=== PATIENT | female | born 1980 | race African-American/Black ===

== ENCOUNTER 2016-05-30 18:46 | Inpatient (IN) ==
[2016-05-30] MEDS ORDERED: SOLU-MEDROL IV ONE (19:01)
[2016-05-30] MEDS ORDERED: DUONEB (A & A) INH ONE ×2 (19:02→20:48)
--- NOTE | 2016-05-30 19:09 | PROVIDER DOCUMENTATION ---
HPI-Respiratory General <Tacho Chung - Last Filed: 05/30/16 22:12> - General Source: patient, other (firend) - History of Present Illness-Resp Quality of Pain: reports: none Severity in ED: reports: severe Onset/Duration: reports: 24 hours ago Timing: reports: still present, constant, getting worse Exposure: reports: unknown cause Episode Frequency: occasional episodes Current Respiratory Medication Therapy: Initiated see nurses note Modifying Factors: improves with: nothing Associated Symptoms: reports: short of breath Similar Symptoms Previously?: Yes <Blair Howard Jr - Last Filed: 05/30/16 22:25> - General Chief Complaint: Shortness of Breath Stated Complaint: HEART PROBLEMS Time Seen by Provider: 05/30/16 19:00 Allergies/Adverse Reactions: Patient Allergies Allergy/AdvReac Type Severity Reaction Status Date / Time No Known Allergies Allergy Verified 05/30/16 22:01 Home Medications: Home Medication List Medication Instructions Recorded Confirmed Last Taken Type Home Meds Unobtainable 05/30/16 05/30/16 Unknown History - History of Present Illness-Resp Nature of Presenting Problem: 36 y/o AAF with a PMHx of respiratory issues that presents to the ED wiht a one day h/o SOB. Friend reports patient has been using NEB multiple times over the past day. States pt was hospitalized in the past with similar issues. No other history obtained. (Blair Howard Jr) Review of Systems - Adult - REVIEW OF SYSTEMS - ADULT Constitutional: reports: no symptoms reported Eyes: reports: no symptoms reported Ears, Nose, Mouth & Throat: reports: no symptoms reported Cardiovascular: reports: no symptoms reported Respiratory: reports: cough, shortness of breath, wheezing Gastrointestinal: reports: no symptoms reported Genitourinary: reports: no symptoms reported Musculoskeletal: reports: no symptoms reported Integumentary: reports: no symptoms reported Neurological: reports: no symptoms reported Psychiatric: reports: no symptoms reported Endocrine: reports: no symptoms reported Hematologic/Lymphatic: reports: no symptoms reported Allergic/Immunologic: reports: no symptoms reported <Blair Howard Jr - Last Filed: 05/30/16 22:25> Past History - Adult - PAST MEDICAL HISTORY-ADULT Review of Records: reports: Old Records Reviewed, Nursing Assessment Review, Medications Reviewed Cardiovascular: reports: HTN Endocrine/Immune: reports: thyroid disorder - PRIOR SURGERIES/PROCEDURES Surgical/Procedure History: reports: , other (thyroidectomy) - IMMUNIZATION STATUS Childhood Immunizations: See Nurse Assessment Flu Vaccine: See Nurse Assessment - SOCIAL HISTORY Smoking: cigarettes, less than 1 pack/day Substance Use: none/never Living Situation: friend <Blair Howard Jr - Last Filed: 05/30/16 22:25> Physical Exam-General - PHYSICAL EXAM-ADULT Initial Vital Signs Reviewed: Yes - CONSTITUTIONAL General Appearance: moderate distress. negative: lethargic, slow to respond - EYES Eyes: PERRL/EOMI, pink conjunctivae. negative: sclera injected, scleral icterus - HEAD, EARS, NOSE, MOUTH & THROAT HENMT: normocephalic/atraumatic. negative: pharyngeal erythema, tonsillar exudate - NECK Neck: non-tender, full range of motion, supple. negative: C-spine tenderness - RESPIRATORY Respiratory: respiratory distress, decreased breath sounds, accessory muscle use , wheezing. negative: crackles, rales, rhonchi, stridor - CARDIOVASCULAR Cardiovascular: normal peripheral pulses, regular rate, rhythm, no murmur, tachycardia - CHEST (BREASTS) Chest/Breast: no tenderness - GASTROINTESTINAL (ABDOMEN) Abdominal Exam: normal bowel sounds, non tender, soft. negative: guarding, rigid, rebound, tenderness - GENITOURINARY Female Genitalia/Pelvic Exam: deferred Rectal Exam: deferred - LYMPHATIC Lymphatic: no adenopathy - MUSCULOSKELETAL Back Exam: normal inspection. negative: muscle spasm Extremity: normal range of motion. negative: swelling, tenderness - SKIN Integumentary: normal color, normal turgor, warm/dry. 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 negative: facial droop, focal weakness, motor weakness - PSYCHIATRIC Psych/Mental Status: normal mood/affect, normal thought content, normal thought process, oriented x 3, anxious <Bliar Howard Jr - Last Filed: 05/30/16 22:25> Progress - REASSESSMENT Reassessment #1 Time Reassessed: 22:07 Status: improving (Pt is breathing better; Slight RU expiratory wheeze and diminished breath sounds on RLL. Improved airation. Dr. Howard discussed plan to admit pt for round the clock breathing treatments and steroids.) - EKG 1 Time of EKG reading by physician:: 18:58 EKG Read and Signed by:: Blair Howard Jr EKG Interpretation (*Must complete 3 of following elements*): Abnormal (Minimal voltage criteria for LVH, may be normal variant) Rate: 115 Rhythm: Sinus tachycardia - XRAY 1 XRAY: Bilateral XRAY Study: Chest Impression: See EMR Report XRAY Interpretation: Mild cardiomegaly, otherwise nad - CONSULTS/PCP/HOSPITALIST Notification #1 *Consult/PCP/Hospitalist*: Dr. Nails (Hospitalist) Time Discussed: 22:13 Consult Disposition: Admit <Tacho Chung - Last Filed: 05/30/16 22:12> <Blair Howard Jr - Last Filed: 05/30/16 22:25> - PLAN OF CARE/RESULTS Progress/Plan/Lab Results: 2205: Hospitalist paged. Vital Signs - 24 hr 05/30/16 05/30/16 19:00 19:09 Temperature 97.5 F L Pulse Rate 100 H 116 H Respiratory 25 H 20 Rate Blood Pressure 166/113 O2 Sat by Pulse 100 Oximetry Orders Category Date Time Status Cardiac Monitoring DIRECTED Care 05/30/16 19:00 Active Saline Loc NOW Care 05/30/16 19:00 Active CHEST-2 VIEWS [RAD] Stat Exams 05/30/16 19:00 Taken ABG [RESP] Routine Lab 05/30/16 20:45 Completed ALCOHOL BLOOD Stat Lab 05/30/16 19:33 Completed CBC WITH ELECTRONIC DIFF [HEME] Stat Lab 05/30/16 19:25 Completed CK PROFILE [SP CHEM] Stat Lab 05/30/16 19:25 Completed COMPREHENSIVE METABOLIC PANEL [CHEM] Stat Lab 05/30/16 19:25 Completed MAGNESIUM [CHEM] Stat Lab 05/30/16 19:25 Completed PRO B-NATRIURETIC PEPTIDE Stat Lab 05/30/16 19:25 Completed PROTIME WITH INR [COAG] Stat Lab 05/30/16 19:25 Completed PTT [COAG] Stat Lab 05/30/16 19:25 Completed TROPONIN T Stat Lab 05/30/16 19:25 Completed Albuterol 2.5MG/Ipratrop 0.5MG [Duoneb (A & A)] Med 05/30/16 19:02 Discontinued 3 ml INH NOW ONE Albuterol 2.5MG/Ipratrop 0.5MG [Duoneb (A & A)] Med 05/30/16 20:48 Discontinued 3 ml INH NOW ONE Methylprednisolone Sod Succ [Solu-Medrol] Med 05/30/16 19:01 Discontinued 125 mg IV NOW ONE Nitroglycerin Sl [Nitroglycerin] Med 05/30/16 19:00 Active 0.4 mg SL Q5M PRN PRN Aerosol Treatments Routine Oth 05/30/16 19:02 Completed Aerosol Treatments Routine Oth 05/30/16 20:48 Active Aerosol Treatments Stat Oth 05/30/16 19:02 Completed Aerosol Treatments Stat Oth 05/30/16 20:48 Active EKG [EKG] Stat Ther 05/30/16 19:00 Ordered Laboratory Tests 05/30/16 05/30/16 05/30/16 19:25 19:25 19:25 WBC 7.52 RBC 5.90 H Hgb 14.3 Hct 41.7 MCV 70.7 L MCH 24.2 L MCHC 34.3 RDW Std Deviation 16.7 H Plt Count 180 MPV Not Reportable Immature Gran % (Auto) 0.0 Neut % (Auto) 46.9 Lymph % (Auto) 44.5 [place] % (Auto) 8.1 Eos % (Auto) 0.4 Baso % (Auto) 0.1 Immature Gran # (Auto) 0.00 Neut # (Auto) 3.52 Lymph # (Auto) 3.35 [place] # (Auto) 0.61 H Eos # (Auto) 0.03 Baso # (Auto) 0.01 PT INR PTT (Actin FS) Specimen Type Sample Site pH pCO2 pO2 HCO3 Base Excess Oxyhemoglobin ABG O2 Sat (Calculated) ABG O2 Saturation ABG Carboxyhemoglobin ABG Methemoglobin Ildefonso Test A-a O2 Difference Total Hemoglobin Lactate Liter Flow Blood Gas Modality FiO2 % Sodium 140 Potassium 3.0 L Chloride 95 L Carbon Dioxide 21 L Anion Gap 24 BUN 5 L Creatinine 0.7 Estimated GFR/1.73 m2 > 60 BUN/Creatinine Ratio 7 Glucose 105 H Calculated Osmolality 277 Calcium 7.3 L Magnesium 1.8 Total Bilirubin 0.31 AST 61 H ALT 35 Alkaline Phosphatase 56 Creatine Kinase 478 H Creatine Kinase Index 0.6 CK-MB (CK-2) 2.92 Troponin T Mnr-I-Laohrpofcto Pept 902 H Total Protein 7.8 Albumin 4.1 Globulin 3.7 Albumin/Globulin Ratio 1.1 Plasma/Serum Ethyl Alc 05/30/16 05/30/16 05/30/16 19:25 19:25 19:33 WBC RBC Hgb Hct MCV MCH MCHC RDW Std Deviation Plt Count MPV Immature Gran % (Auto) Neut % (Auto) Lymph % (Auto) [place] % (Auto) Eos % (Auto) Baso % (Auto) Immature Gran # (Auto) Neut # (Auto) Lymph # (Auto) [place] # (Auto) Eos # (Auto) Baso # (Auto) PT 10.7 INR 1.01 PTT (Actin FS) 30.9 Specimen Type Sample Site pH pCO2 pO2 HCO3 Base Excess Oxyhemoglobin ABG O2 Sat (Calculated) ABG O2 Saturation ABG Carboxyhemoglobin ABG Methemoglobin Ildefonso Test A-a O2 Difference Total Hemoglobin Lactate Liter Flow Blood Gas Modality FiO2 % Sodium Potassium Chloride Carbon Dioxide Anion Gap BUN Creatinine Estimated GFR/1.73 m2 BUN/Creatinine Ratio Glucose Calculated Osmolality Calcium Magnesium Total Bilirubin AST ALT Alkaline Phosphatase Creatine Kinase Creatine Kinase Index CK-MB (CK-2) Troponin T < 0.010 Eri-T-Skyoifjqqxx Pept Total Protein Albumin Globulin Albumin/Globulin Ratio Plasma/Serum Ethyl Alc 309 H 05/30/16 20:45 WBC RBC Hgb Hct MCV MCH MCHC RDW Std Deviation Plt Count MPV Immature Gran % (Auto) Neut % (Auto) Lymph % (Auto) [place] % (Auto) Eos % (Auto) Baso % (Auto) Immature Gran # (Auto) Neut # (Auto) Lymph # (Auto) [place] # (Auto) Eos # (Auto) Baso # (Auto) PT INR PTT (Actin FS) Specimen Type ARTERIAL Sample Site R RADIAL pH 7.42 pCO2 42 pO2 130 H HCO3 26.7 H Base Excess 2.4 Oxyhemoglobin 92.4 L ABG O2 Sat (Calculated) 18.5 ABG O2 Saturation 99.0 ABG Carboxyhemoglobin 5.10 H* ABG Methemoglobin 1.6 H Ildefonso Test YES A-a O2 Difference 46.0 Total Hemoglobin 14.1 Lactate 2.40 H Liter Flow 3.0 Blood Gas Modality CANNULA FiO2 % 32.0 Sodium Potassium Chloride Carbon Dioxide Anion Gap BUN Creatinine Estimated GFR/1.73 m2 BUN/Creatinine Ratio Glucose Calculated Osmolality Calcium Magnesium Total Bilirubin AST ALT Alkaline Phosphatase Creatine Kinase Creatine Kinase Index CK-MB (CK-2) Troponin T Kro-O-Flztcckofiq Pept Total Protein Albumin Globulin Albumin/Globulin Ratio Plasma/Serum Ethyl Alc (Tacho Chung) Departure <Tacho Chung - Last Filed: 05/30/16 22:12> - Departure Time of Disposition Order: 22:24 Certified Medical Emergency: Emergent <Blair Howard Jr - Last Filed: 05/30/16 22:25> - Departure DIAGNOSIS: Bronchospastic airway disease Alcohol intoxication Qualifiers: Complication of substance-induced condition: uncomplicated Qualified Code(s): F10.120 - Alcohol abuse with intoxication, uncomplicated Disposition: ADMITTED INPATIENT 09 Condition: Fair Attestation - Scribe Verification/Attestation Scribe:: Tacho Chung Acting as Scribe for:: Blair Howard Jr Scribe documention review:: This chart was documented by a scribe and accurately reflects the service the provider performed and the decisions made by the provider. <Tacho Chung - Last Filed: 05/30/16 22:12> Physician Attestation
[2016-05-30 19:50] LABS: INR 1.01; PROTIME 10.7 Seconds (9.2-11.7); PTT 30.9 Seconds (22.0-36.0)
[2016-05-30 20:03] LABS: BASO% 0.1 % (0.0-0.8); EOS# 0.03 X1000 (0.0-0.7); EOS% 0.4 % (0.0-10.0); HEMATOCRIT 41.7 % (37.0-47.0); HEMOGLOBIN 14.3 g/dL (12.0-16.0); LYMPH# 3.35 X1000 (1.2-3.4); LYMPH% 44.5 % (20.5-51.1); MANUAL DIFF NEEDED? NO; MCH 24.2 PG (27-31); MCHC 34.3 g/dL (33-37); MCV 70.7 FL (81-99); MONO# 0.61 X1000 (0.11-0.59); MONO% 8.1 % (1.7-9.3); NEUT% 46.9 % (42.2-75.2); PLT 180 X1000 (130-400)
[2016-05-30 20:13] LABS: AGAP 24; ALBUMIN 4.1 g/dL (3.5-5.0); ALKALINE PHOSPHATASE 56 U/L (32-104); BUN 5 mg/dL (8-22); CALCIUM 7.3 mg/dL (8.8-10.2); CHLORIDE 95 mmol/L (98-107); COSMO 277; GOT 61 U/L (10-30); GPT 35 U/L (10-36); MAGNESIUM 1.8 mg/dL (1.5-2.7); SODIUM 140 mmol/L (136-145); TCO2 21 mmol/L (25-35); TOTAL BILIRUBIN 0.31 mg/dL (0.20-1.00); TOTAL PROTEIN 7.8 g/dL (6.3-8.3)
[2016-05-30 20:17] LABS: CK PROFILE 478 U/L (24-173)
[2016-05-30 20:33] LABS: CK INDEX 0.6 (0.0-2.5); CK-MB 2.92 ng/mL (0.0-5.0)
[2016-05-30 20:52] LABS: ALLEN TEST YES; BE 2.4 mmoll (-3.0-3.0); BLOOD TYPE ARTERIAL; DRAW SITE R RADIAL; METHB 1.6 % (0.0-1.5); O2(CT) 18.5 mL/dL (15.0-23.0); PCO2(98.6) 42 mmHg (35-45); PO2(98.6) 130 mmHg (60-100); SAMPLE BLOOD; THB 14.1 g/dL (11.5-17.4); pH(98.6) 7.42 (7.35-7.45)
[2016-05-30 20:55] LABS: MODALITY CANNULA
[2016-05-30] MEDS ORDERED: MAGNESIUM SULFATE 2 GM/S.W.I. 50 ML IV ONE (22:14)
[2016-05-31] MEDS: SOLU-MEDROL IV SCH ×4 (01:03→20:35)
[2016-05-31] MEDS: TYLENOL PO PRN ×2 (01:55→20:42)
[2016-05-31] MEDS: DUONEB (A & A) INH SCH ×5 (04:00→15:17)
--- NOTE | 2016-05-31 04:59 | HISTORY AND PHYSICAL ---
CHIEF COMPLAINT: Shortness of breath. HISTORY OF PRESENTING ILLNESS: A 36-year-old female with a history of hypertension and hypothyroidism who presented to the emergency department with a 1-week history of having some shortness of breath. She states that she was wheezing and over the course the week, it seemed to be worsening. Over the past day, she was having more difficulty breathing and subsequently had come to the emergency department. In the ER, she was evaluated. She was somewhat dyspneic. She was given DuoNebs and IV Solu-Medrol, and she seemed to improve somewhat. Due to her presenting symptoms, she will need hospitalization for further management. At the time of my examination, she had denied any headache, vision changes, fevers, chills, chest pain, hemoptysis, melena, weight changes, but complained of shortness of breath. PAST MEDICAL HISTORY: Includes hypertension and hypothyroidism. PAST SURGICAL HISTORY: Thyroidectomy. ALLERGIES: No known drug allergies. CURRENT MEDICATIONS: As listed in the MAR. SOCIAL HISTORY: She denies any history of any drug use but admits to smoking 1 pack per day for the past 10 years. Admits to alcohol use regularly. FAMILY HISTORY: Positive for coronary artery disease in mother. REVIEW OF SYSTEMS: Twelve point review of systems listed as in the HPI. Other systems negative. PHYSICAL EXAMINATION: GENERAL: Cooperative, friendly female. She is resting more comfortably now. VITAL SIGNS: Temperature 97.5 degrees, pulse 100, respirations 25, blood pressure 166/113. HEENT: Atraumatic, normocephalic. Extraocular movements intact. PERRLA. NECK: No masses. CHEST: Rhonchi. CARDIOVASCULAR: Regular rate and rhythm. ABDOMEN: Soft. Positive bowel sounds. EXTREMITIES: No edema. NEUROLOGIC: She is awake, alert, and oriented x3. : No bladder distention. SKIN: Warm. LABORATORIES AND STUDIES: WBC 7.52, hemoglobin 14.3, hematocrit 41.7, platelets 180,000. Sodium 140, potassium 3, chloride 95, CO2 is 21, BUN is 5, creatinine 0.7, glucose 105. ProBNP is 902. Magnesium is 1.8. ASSESSMENT: A 36-year-old female with a history of hypertension and hypothyroidism who had presented to the emergency department with a 1-week history of worsening shortness of breath. She was found to be somewhat dyspneic in the emergency room. She was given DuoNebs and intravenous Solu-Medrol. Symptoms seemed to improve. The patient will need hospitalization for further management. 1. Acute asthma exacerbation. 2. Ongoing tobacco abuse. 3. Chronic alcoholism. 4. Hypertension. PLAN: 1. We will admit patient to the medical floor with telemetry. 2. Continue with DuoNebs and IV Solu-Medrol. 3. 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 4. Give patient a banana bag and I counseled her on alcohol cessation. 5. We will monitor blood pressure and resume antihypertensive agents. 6. We will continue to follow and reassess.
--- NOTE | 2016-05-31 05:43 | EKG Report ---
Test Performed on : 05/30/2016 6:58:06 PM Test Reason : SOB Blood Pressure : / mmHG Vent. Rate : 115 BPM Atrial Rate : 115 BPM P-R Int : 150 ms QRS Dur : 094 ms QT Int : 356 ms P-R-T Axes : 072 004 052 degrees QTc Int : 492 ms Sinus tachycardia. Minimal voltage criteria for LVH, may be normal variant Borderline ECG When compared with ECG of 01-MAR-2016 06:19, T wave inversion no longer evident in Lateral leads Unconfirmed Result
[2016-05-31 05:48] LABS: HEMATOCRIT 41.9 % (37.0-47.0); LYMPH# 0.34 X1000 (1.2-3.4); LYMPH% 8.8 % (20.5-51.1); MANUAL DIFF NEEDED? YES; MCH 23.8 PG (27-31); MCHC 33.4 g/dL (33-37); MCV 71.3 FL (81-99); MONO# 0.02 X1000 (0.11-0.59); MONO% 0.5 % (1.7-9.3); NEUT% 90.7 % (42.2-75.2); PLT 166 X1000 (130-400); RBC 5.88 XMIL (4.2-5.4)
[2016-05-31 05:59] LABS: AGAP 20; BUN 6 mg/dL (8-22); CALCIUM 7.6 mg/dL (8.8-10.2); CHLORIDE 97 mmol/L (98-107); COSMO 284; POTASSIUM 3.3 mmol/L (3.5-5.1); SODIUM 140 mmol/L (136-145); TCO2 23 mmol/L (25-35)
[2016-05-31] MEDS: ATIVAN IV PRN ×4 (06:45→20:42)
--- NOTE | 2016-05-31 07:57 | Diag Imaging Result Document ---
PROCEDURE NAME: CHEST-2 VIEWS - 05/30/2016 CHEST X-RAY, 2 VIEWS: COMPARISON: 03/07/2016. FINDINGS: Lung volumes are low. There is improvement in the mild cardiomegaly. No significant infiltrates. No pneumothorax or pleural effusion. IMPRESSION: Mild cardiomegaly. No acute abnormality.
[2016-05-31 07:59] LABS: BANDS 2 % (0-1); HYPOCHROM 2+; LYMPHS 2 % (21-51)
--- NOTE | 2016-05-31 09:49 | PROGRESS NOTE ---
DATE: 05/31/2016 SUBJECTIVE: This 36-year-old female with history of hypertension and hypothyroidism presented to the emergency department with a one week history of having some shortness of breath. She states that she was wheezing over the course of weeks and seemed to worsen. In the past day, she is having more difficulty breathing and, subsequently, had come the emergency department. In the ER, she was evaluated and somewhat dyspneic. She was given DuoNebs and IV Solu-Medrol. It seemed to improve somewhat. Due to her presenting symptoms, we will need hospitalization for further management. At the time I examined her, she denied any headache or vision change, fever, chills, chest pain, hemoptysis, melena, or weight change, but complained of shortness of breath. PAST MEDICAL HISTORY: Hypertension and hypothyroidism. OBJECTIVE: She was resting comfortably. She did arouse, but she went right back to sleep. She denied any problem and appeared to be breathing comfortably. She did not want to be bothered this morning. Temperature 98.5 degrees, pulse 99, respirations 18, blood pressure 149/87. Pupils are equal, round, reactive. CVP less than 6 cm. Lungs are clear in all lung eckert. Cardiovascular: Regular rhythm and rate without murmur or S3. Abdomen is soft. Skin is warm and dry. Weight 182 pounds. White count 3850, hematocrit 41, platelet count 166,000. Sodium 140, potassium 3.3, chloride 97, bicarb 23. BUN 6, creatinine 0.7. ASSESSMENT AND PLAN: 1. Acute asthma exacerbation. Seems to be doing better. Continue bronchodilators, Solu-Medrol, and a steroid inhaler. 2. Ongoing tobacco use. Discussed and related the importance of tobacco cessation. 3. Chronic alcoholism. 4. Hypotension. She is on a banana bag. We will look for signs of withdrawal and the possibility of DTs. Reviewed orders. Methylprednisone 80 mg IV q.6. Ativan 1 mg q.4 hours p.r.n. She is getting nebulizer treatment. I will give her Advair 250/50 one puff twice a day and add that to her regimen.
[2016-05-31] MEDS: BYSTOLIC PO SCH (16:01)
[2016-05-31] MEDS: DUONEB (A & A) INH PRN ×2 (17:12→23:25)
[2016-05-31] MEDS: NITROGLYCERIN SL PRN (18:11)
[2016-05-31] MEDS: ADVAIR 250/50 DISKUS INH SCH (20:01)
[2016-06-01] MEDS ORDERED: MORPHINE IV PRN (00:07)
[2016-06-01] MEDS: ATIVAN IV PRN ×3 (01:46→20:40)
[2016-06-01] MEDS: SOLU-MEDROL IV SCH ×4 (01:46→20:40)
[2016-06-01 03:07] LABS: CK INDEX 0.9 (0.0-2.5); CK-MB 2.4 ng/mL (0.0-5.0)
--- NOTE | 2016-06-01 05:54 | EKG Report ---
Test Performed on : 06/01/2016 00:49:14 AM Test Reason : Chest pain Blood Pressure : / mmHG Vent. Rate : 085 BPM Atrial Rate : 085 BPM P-R Int : 168 ms QRS Dur : 100 ms QT Int : 470 ms P-R-T Axes : 034 034 039 degrees QTc Int : 559 ms Normal sinus rhythm. Moderate voltage criteria for LVH, may be normal variant Prolonged QT Abnormal ECG When compared with ECG of 30-MAY-2016 18:58, (Unconfirmed) No significant change was found Confirmed by Bo LUGO, Ildefonso Forrester ([id number]) on 06/03/2016 5:18:34 PM
[2016-06-01] MEDS: SYNTHROID PO SCH ×2 (05:56→15:21)
[2016-06-01] MEDS ORDERED: SYNTHROID PO SCH (07:00)
[2016-06-01] MEDS: ADVAIR 250/50 DISKUS INH SCH ×2 (07:49→20:22)
[2016-06-01] MEDS: DUONEB (A & A) INH PRN ×2 (07:49→20:22)
[2016-06-01] MEDS: BYSTOLIC PO SCH (09:16)
[2016-06-01] MEDS: NEPHROCAPS PO SCH (09:17)
--- NOTE | 2016-06-01 12:05 | PROGRESS NOTE ---
DATE: 06/01/2016 SUBJECTIVE: She, to recall, was admitted on the . A 36-year-old with shortness of breath, history of hypertension, hypothyroidism. Presented to the emergency room with a 1-week history of having some shortness of breath. Had been wheezing over the course of weeks. Seemed to be worsening. Over the past day, day of admission, she was having more difficulty breathing. Subsequently had come to the emergency room. In the ER, she was evaluated, somewhat dyspneic. She was given DuoNebs, IV Solu-Medrol. Seemed to improve somewhat but felt she needed hospitalization. Wheezing is better. She still has expiratory wheezing. She has been very lethargic, sleeping most of the day. Yesterday, complained of some dizzy sensation. Today, complaining of a little bit of stomach discomfort. I explained that we do not want to give her any pain medicine if we can avoid it because of her breathing. I would like her to start getting up some in a chair and see if we can move around a little bit. PHYSICAL EXAMINATION: Vital Signs: Temperature 98.1 degrees, pulse 75, respirations 16, blood pressure 168/82. HEENT: Pupils are equal and round. CVP less than 6 cm of water pressure from angle of [place]. Lungs: With expiratory wheezing, end-expiratory which is scattered throughout the lateral lung eckert. Abdomen: Soft. Skin: Warm and dry. LABORATORY DATA: Review of labs from the unremarkable, both chemistry and CBC. She had an EKG on admission and she was in sinus rhythm. No ST-segment changes. Pretty unremarkable. Repeat EKG on the , no change, nonspecific ST segments with some T-wave inversion in the anterolateral leads. ASSESSMENT AND PLAN: 1. Acute asthma exacerbation. I think she is doing better. Continue bronchodilator. She is on a steroid inhaler. She is on Solu-Medrol. We will decrease the Solu-Medrol a little bit. 2. Ongoing tobacco use. Discussed the importance of tobacco cessation. She is on a nicotine patch. 3. Apparently history of alcohol use. No sign of delirium tremens at this point. 4. Blood pressure appears to be well controlled. Hypertension. 5. Review of her orders. We will decrease the Solu-Medrol from 80 down to 40 mg intravenous every 6. She is on Synthroid 125 mcg a day, folic acid 1 mg daily. She is on Ativan as needed. We will stop the morphine. She is back on her by [facility]. Watch her blood pressures.
[2016-06-01] MEDS: TYLENOL PO PRN ×2 (13:39→20:45)
[2016-06-01] MEDS: NITROGLYCERIN SL PRN ×2 (20:25→20:32)
[2016-06-02] MEDS: SOLU-MEDROL IV SCH ×2 (02:12→09:24)
[2016-06-02] MEDS: ATIVAN IV PRN ×4 (02:12→21:08)
[2016-06-02] MEDS: NITROGLYCERIN SL PRN (02:14)
[2016-06-02] MEDS: TYLENOL PO PRN (02:19)
[2016-06-02] MEDS: SYNTHROID PO SCH (06:11)
[2016-06-02] MEDS: DUONEB (A & A) INH PRN ×4 (07:33→23:14)
[2016-06-02] MEDS: ADVAIR 250/50 DISKUS INH SCH ×2 (07:33→19:15)
[2016-06-02] MEDS: BYSTOLIC PO SCH (09:24)
[2016-06-02] MEDS: NEPHROCAPS PO SCH (09:24)
--- NOTE | 2016-06-02 13:07 | PROGRESS NOTE ---
DATE: 06/02/2016 SUBJECTIVE: This is a 33-year-old female, history of hypertension and hypothyroidism, who presented to the emergency room with 1-week history of having some shortness of breath, wheezing over the course of the week that seemed to be worsened the previous day before she came in. She has been breathing comfortably at the present time. She has been lethargic, both mornings that I have come in. This morning difficult to arouse. Breathing comfortably. PAST SURGICAL HISTORY: Thyroidectomy. PAST MEDICAL HISTORY: Hypertension and hypothyroidism. OBJECTIVE: Vital Signs: On exam, temperature 98.4 degrees, pulse 86, respirations 18, blood pressure 159/84. HEENT: Pupils are equal and round. CVP less than 6 cm. Lungs: Clear in all lung eckert. Cardiovascular exam: Regular rhythm and rate without murmur or S3. Abdomen: Soft. Skin: Warm and dry. ASSESSMENT AND PLAN: 1. A 36-year-old female with history of hypertension and hypothyroidism appeared to have bronchospasm and wheezing. She appears to have improved. She is still pretty lethargic, sleeping most of the time. 2. Morbid obesity with apnea. 3. History of alcohol use. 4. History of tobacco use. Looking at orders, she is on methylprednisone 40 mg IV q. 6 hours; I am going to cut that down to 20 q. 12 hours. Then, we have taken her off of any sedative medications. Blood pressures appeared to be pretty well controlled. Need to start getting her up and getting her out of bed. We will ask physical therapy to start helpful with that.
[2016-06-02] MEDS: EXCEDRIN MIGRAINE PO PRN (13:53)
[2016-06-02] MEDS ORDERED: SOLU-MEDROL IV SCH (21:00)
[2016-06-03] MEDS: ATIVAN IV PRN ×3 (03:36→22:04)
[2016-06-03] MEDS: TYLENOL PO PRN ×2 (03:36→22:05)
[2016-06-03] MEDS: DUONEB (A & A) INH PRN ×5 (03:56→23:37)
[2016-06-03] MEDS: SYNTHROID PO SCH (06:12)
[2016-06-03] MEDS: ADVAIR 250/50 DISKUS INH SCH ×2 (07:54→19:50)
--- NOTE | 2016-06-03 08:36 | PROGRESS NOTE ---
DATE: 06/03/2016 SUBJECTIVE: She still states she wakes up with a headache. She has slept quite a bit in the last several days. She did get up and do some walking yesterday and said that she did pretty good. Breathing is doing well. No wheezing at the present time, moving air well. OBJECTIVE: Vital Signs and Neck: Temperature 98.6 degrees, pulse 84, respirations 15, blood pressure 166/96. The pupils are equal. CVP less than 6 cm. Lungs: Clear anterolaterally and posteriorly. Cardiovascular: Regular rhythm and rate without murmur or S3. Abdomen: Soft. Skin is warm and dry. LABORATORY DATA: Labs review from the . Chemistries and blood sugars have done fairly well at 210, 112, 216 on her last 3 reported. ASSESSMENT AND PLAN: 1. Asthma with wheezing and bronchospasm, doing much better. I think we can cut down and continue to taper her Solu-Medrol. 2. Morbid obesity with some apnea. 3. History of alcohol use. 4. History of tobacco use, I think on a nicotine patch. 5. She feels like she is having some migraine headaches. It is hard to know, these also could be withdrawal headaches. MEDICATIONS: We will decrease the methylprednisone down to 20 mg every 12 hours. She is on her by Bystolic 5 mg daily, folic acid 1 mg daily, Synthroid 125 mcg p.o. daily, and I have her on fluticasone/salmeterol 1 b.i.d., albuterol.
[2016-06-03] MEDS: PRINIVIL PO SCH (09:03)
[2016-06-03] MEDS: SOLU-MEDROL IV SCH ×2 (09:03→22:05)
[2016-06-03] MEDS: NEPHROCAPS PO SCH (09:03)
[2016-06-03] MEDS: BYSTOLIC PO SCH (09:03)
[2016-06-03] MEDS: ZOFRAN IV PRN ×2 (12:42→16:37)
[2016-06-03] MEDS: EXCEDRIN MIGRAINE PO PRN ×2 (16:38)
[2016-06-04] MEDS: DUONEB (A & A) INH PRN ×6 (02:37→23:11)
[2016-06-04] MEDS: ZOFRAN IV PRN ×3 (03:04→20:42)
[2016-06-04] MEDS: ATIVAN IV PRN ×3 (03:04→20:42)
[2016-06-04] MEDS: EXCEDRIN MIGRAINE PO PRN ×2 (03:06→09:50)
[2016-06-04] MEDS: ADVAIR 250/50 DISKUS INH SCH ×2 (07:41→19:09)
[2016-06-04] MEDS: SYNTHROID PO SCH (08:00)
[2016-06-04] MEDS: SOLU-MEDROL IV SCH ×2 (09:06→20:39)
[2016-06-04] MEDS: BYSTOLIC PO SCH (09:06)
[2016-06-04] MEDS: NEPHROCAPS PO SCH (09:06)
[2016-06-04] MEDS: PRINIVIL PO SCH (09:06)
[2016-06-04] MEDS ORDERED: MOTRIN PO PRN (12:26)
[2016-06-04] MEDS: FIORICET PO PRN ×3 (13:35→22:29)
--- NOTE | 2016-06-04 17:28 | DISCHARGE SUMMARY ---
ADMISSION DATE: 05/30/2016 DISCHARGE DATE: HISTORY OF PRESENT ILLNESS: A 36-year-old with a history of hypertension, hypothyroidism, who presented to the emergency room with 1-week history of having some shortness of breath. States that she was wheezing over the course of last week and it seemed to be worsening. Over the past day she was having more difficulty breathing, subsequently had to come in to the emergency department. In the ER she was evaluated, was somewhat dyspneic by report, given some DuoNebs and Solu-Medrol, and seemed to improve somewhat. Due to the presenting symptoms they felt that she would need hospitalization for further workup. At that time, on exam, she denied headache, vision changes, fever, chills, chest pain, hemoptysis, melena, weight change. Only complaint is shortness of breath. PAST MEDICAL HISTORY: Hypertension and hypothyroidism. She is status post a thyroidectomy. ALLERGIES: No known drug allergies. SOCIAL HISTORY: She has a history of smoking, ongoing tobacco use, and apparently history of alcohol. And so we gave her a banana bag, concern was that she was having some withdrawal. Never did present into DT's. She also has history of hypertension. Her labs when she was admitted, her ethanol level was 309. MEDICATIONS AT HOME: She was on Synthroid 125 mcg a day, Bystolic 5 mg a day, vitamin B complex 1 a day. Note: The following day, she slept. I checked on her 4 times during the day and each time had to really shake her to arouse her, and this was the same. She was admitted on the , I saw her the following morning through today. On the , slept most of the day. On the , slept most of the day. On the 2nd, she was arousable, we did start physical therapy to try to get her up. She complained of some chest discomfort. She complained of headache. She complained that she would wake up with a headache. Each time I came in the morning she was sleeping soundly, and she told me she would like to try go home on 06/04/2016. However the morning of discharge felt like she would like more tests run, did not understand why she was still having headaches, in her words, wanted to know what is going on with her. Her was at the bedside, and, I believe, her daughter and a granddaughter. I told her I felt it was important she get a primary care physician, that she get some followup, that she gets some help with her alcohol, that I felt a good number of her problems were related to the alcohol. I did not want to give her pain medicine at this point, and I did not have any other further tests that we were going to run. So she has reluctantly wanted to go home. We will see if we can discharge her today.
[2016-06-05] MEDS: ATIVAN IV PRN ×5 (00:46→23:47)
[2016-06-05] MEDS: ZOFRAN IV PRN ×5 (00:46→23:54)
[2016-06-05] MEDS: FIORICET PO PRN ×5 (02:19→23:53)
[2016-06-05] MEDS: SOLU-MEDROL IV SCH ×2 (08:03→22:22)
[2016-06-05] MEDS: BYSTOLIC PO SCH (08:06)
[2016-06-05] MEDS: PRINIVIL PO SCH (08:06)
[2016-06-05] MEDS: SYNTHROID PO SCH (08:06)
[2016-06-05] MEDS: NEPHROCAPS PO SCH (08:07)
--- NOTE | 2016-06-05 11:15 | PROGRESS NOTE ---
DATE: 06/05/2016 SUBJECTIVE: She was sleeping sound. Was able to arouse but appeared comfortable. She said she is feeling better. Had a long talk with her and with the family. She reluctantly gave me permission to talk to the family. Family is concerned that not enough is being done for her but we did have open discussion. I explained that she came in with an alcohol level of 300 and I was concerned she has an alcohol issue and needs some help. She says she is still getting headaches and very much would like to get a CT of her head so will go ahead and do that this morning. OBJECTIVE: Vital Signs: Today temp remains afebrile. Temperature 98.4 degrees, pulse 80, respirations 18, blood pressure 145/80. HEENT: Pupils are equal, round. Lungs: Clear in all lung eckert. Cardiovascular: Regular rhythm and rate without murmur or S3. Abdomen: Soft. Skin: Warm and dry. Good urine output. Blood sugar 216 and 146. ASSESSMENT AND PLAN: 1. Alcohol intoxication. Much better. 2. Headaches. We will check a CT of her head at her request. 3. Diabetes mellitus type 2. Sugars under fairly good control. Hopefully we can get her home soon. Reviewed her orders. The Fioricet appears to be helping some. She is on methylprednisone 20 mg IV q.12 h.
[2016-06-05] MEDS: DUONEB (A & A) INH PRN ×3 (16:04→23:06)
[2016-06-05] MEDS: ADVAIR 250/50 DISKUS INH SCH ×2 (16:04→19:05)
--- NOTE | 2016-06-05 18:40 | Diag Imaging Result Document ---
PROCEDURE NAME: HEAD W/O CONTRAST - 06/05/2016 CT BRAIN WITHOUT CONTRAST. DOSE REDUCTION PROTOCOL: COMPARISON: 02/29/2016. FINDINGS: No parenchymal hemorrhage. No epidural or subdural hematoma. No subarachnoid hemorrhage. No mass identified on this noncontrasted exam. No hydrocephalus. No sinus opacification. IMPRESSION: No hemorrhage. Negative brain CT without contrast. A preliminary report was given at 6:29 p.m.
[2016-06-06] MEDS: EXCEDRIN MIGRAINE PO PRN ×2 (02:20→09:39)
[2016-06-06] MEDS: ATIVAN IV PRN ×3 (04:17→13:45)
[2016-06-06] MEDS: FIORICET PO PRN ×3 (04:18→13:46)
[2016-06-06] MEDS: ZOFRAN IV PRN ×3 (04:18→13:46)
[2016-06-06] MEDS: SYNTHROID PO SCH (06:16)
[2016-06-06] MEDS: DUONEB (A & A) INH PRN ×2 (07:45→11:20)
[2016-06-06] MEDS: ADVAIR 250/50 DISKUS INH SCH (07:45)
[2016-06-06] MEDS: SOLU-MEDROL IV SCH (09:17)
[2016-06-06] MEDS: PRINIVIL PO SCH (09:17)
[2016-06-06] MEDS: BYSTOLIC PO SCH (09:17)
[2016-06-06] MEDS: NEPHROCAPS PO SCH (09:18)
[2016-06-06 11:41] VITALS: BP 163/97
--- NOTE | 2016-06-07 10:18 | PROGRESS NOTE ---
DATE: 06/06/2016 The patient was admitted on 05/30/2016. She came in with shortness of breath and had some wheezing, a history of asthma. She has a history of hypertension and hypothyroidism. Presented to the emergency room after a 1-week history of having some shortness of breath. States that she was wheezing for about a week. It seemed to be worsening. Difficulty breathing and was admitted. Given broncho dilators and steroid inhaler. Her ethanol level was 300. The next really 3 days, she was very lethargic, very sleepy. Did complain of various pains, but mainly headache. Wheezing improved. Was eating, was able to ambulate the halls. In fact, was leaving the johnson to smoke cigarettes. She did not want to go home. She wanted a CAT scan of her head so we did do that. The CAT scan without contrast was normal. Still getting some headaches. I explained and spent a good amount of time explaining to her and family that I did not want to give her opioid pain medicines. The Fioricet did not help. I will let her try Motrin as needed but that she needed to go home. Encouraged her to find a primary care physician. If her headaches persist after she has been off the alcohol, to let him pursue those. We talked about the various kinds of headaches. She does not appear to have migraine headaches. Hers appear to be more in the posterior part of her head. I will let her have a prescription for Motrin. I am going to keep her on her Synthroid 125 mcg daily, Bystolic 5 mg a day, vitamin B complex that she was taking. We will give her a prescription for an inhaler. Once again, I encouraged her to get followup. She wanted a note to say she could go back to work. Today is Monday. Go back to work on Monday so I will make sure she has that. Encouraged weight reduction. Encouraged increased exercise. Encourage tobacco cessation. I asked her if she would like a nicotine patch, which she does not want.
== END 2016-06-06 14:27 | disposition home or self-care (01) | DRG 203 ==
LOC: ED 18:46 → 4N 18:47 → OBSVTOIN 18:47
PROVIDERS: ATTEND Emergency Medicine
DX: J45.901 Unspecified asthma with (acute) exacerbation (principal); E66.01 Morbid (severe) obesity due to excess calories; I10 Essential (primary) hypertension; F17.210 Nicotine dependence, cigarettes, uncomplicated; E89.0 Postprocedural hypothyroidism; Z82.49 Family history of ischemic heart disease and other diseases of the circulatory system; R51 Headache; E11.9 Type 2 diabetes mellitus without complications; F10.229 Alcohol dependence with intoxication, unspecified; Y90.8 Blood alcohol level of 240 mg/100 ml or more; Z79.899 Other long term (current) drug therapy; Z68.31 Body mass index [BMI] 31.0-31.9, adult
CPT/HCPCS: 70450; 71020; 80048; 80053; 81025; 82550; 82553; 82805; 82948; 83735; 83880; 84484; 85025; 85610; 85730; 93005; 93010; 94640; 94760; 94761; 94799; 96365; 96375; G0480; J2060; J2270; J2405; J2920; J2930; J3475; 80320